=== PATIENT | male | born 1990 | race American Indian/Alaskan Native ===

== ENCOUNTER 2019-05-07 21:23 | Emergency (ER) | payer SELFPAY ==
[~2019-05-07 21:23] MED LIST: THERMAZENE 50 GRAM TP ONE
[2019-05-07] MEDS ORDERED: IBUPROFEN PO ONE ×2 (21:47→21:50)
--- NOTE | 2019-05-07 21:47 | Event Note ---
ED Screening Note Date of service: 05/07/19 Time: 21:40 ED Screening Note: 28 y o male presents s/p burn to right hand from hot oil while at work unsure of tetanus booster This initial assessment/diagnostic orders/clinical plan/treatment(s) is/are subject to change based on patients health status, clinical progression and re- assessment by fellow clinical providers in the ED. Further treatment and workup at subsequent clinical providers discretion. Patient/guardian urged not to elope from the ED as their condition may be serious if not clinically assessed and managed. Initial orders include: 600 mg motrin given in ED sulfadene acc eval
[2019-05-07] MEDS ORDERED: BOOSTRIX IM ONE (23:26)
[2019-05-07] MEDS ORDERED: ULTRAM PO ONE (23:26)
[2019-05-08] MEDS ORDERED: THERMAZENE 50 GRAM TP ONE (00:39)
--- NOTE | 2019-05-08 01:20 | Emergency Department Report ---
ED Burn/Smoke HPI - General Chief complaint: Burn/Smoke Inhalation Stated complaint: BURN ON RIGHT HAND Time Seen by Provider: 05/07/19 21:40 Source: patient Mode of arrival: Ambulatory Limitations: No Limitations - History of Present Illness Initial comments: Patient is a 28-year-old AA male with no past medical history presents to the ED with acute onset of persistent severe dorsal right hand blistered burn injury after a hot grease accidentally poured on his right hand at work about 2 hours ago. Patient denies dizziness, numbness and tingling overnight and, nausea, vomiting, syncope, headache, chest pain, shortness of breath, or fall. Patient states that he is not updated his tetanus vaccination. MD Complaint: burn (right hand), other (right hand blistered burn injury) -: Sudden, hour(s) (2) Type of Exposure: hot liquid (greese) Smoke Inhalation: none Place: industrial (work) Location: other (right hand dorsum) Location - Extremities: Right: Hand (dorsal right hand blistered burn injury) Severity: severe Severity scale (0 -10): 7 Associated Symptoms: denies: denies other symptoms, headache, vision changes, cough, diaphoresis, fever/chills, chest pain, flushing, neck pain - Related Data Previous Rx's Medication Instructions Recorded Last Taken Type Acetaminophen/Codeine [Tylenol 1 tab PO Q6H PRN #12 tab 05/08/19 Unknown Rx /Codeine # 3 tab] Ibuprofen [Motrin] 600 mg PO Q8H PRN #24 tablet 05/08/19 Unknown Rx Silver Sulfadiazine [Silvadene] 1 applic TP Q12H #25 cream..g. 05/08/19 Unknown Rx Allergies Allergy/AdvReac Type Severity Reaction Status Date / Time Penicillins Allergy Unknown Verified 05/07/19 21:25 Burn HPI - History Stated Complaint: BURN ON RIGHT HAND Chief Complaint: Burn/Smoke Inhalation Time Seen by Provider: 05/07/19 21:40 Duration of Burn: Today Burn Location: Other (dorsal right hand) Burn Etiology: Accidental, Scald (dorsal right hand) Pain: Severe Tetanus Status: Not up to Date Symptoms:: Yes Blistering, No Malaise, No Myalgias, No Fever, No Vomiting, No Able to Tolerate Fluids Other History: Patient is a 28-year-old AA male with no past medical history presents to the ED with acute onset of persistent severe dorsal right hand blistered burn injury after a hot grease accidentally poured on his right hand at work about 2 hours ago. Patient denies dizziness, numbness and tingling overnight and, nausea, vomiting, syncope, headache, chest pain, shortness of breath, or fall. Patient states that he is not updated his tetanus vaccination. - Home Meds and Allergies Home Medications: Previous Rx's Medication Instructions Recorded Last Taken Type Acetaminophen/Codeine [Tylenol 1 tab PO Q6H PRN #12 tab 05/08/19 Unknown Rx /Codeine # 3 tab] Ibuprofen [Motrin] 600 mg PO Q8H PRN #24 tablet 05/08/19 Unknown Rx Silver Sulfadiazine [Silvadene] 1 applic TP Q12H #25 cream..g. 05/08/19 Unknown Rx Allergies/Adverse Reactions: Allergies Allergy/AdvReac Type Severity Reaction Status Date / Time Penicillins Allergy Unknown Verified 05/07/19 21:25 ED Review of Systems ROS: Stated complaint: BURN ON RIGHT HAND Other details as noted in HPI Constitutional: denies: chills, fever Eyes: denies: eye pain, eye discharge, vision change ENT: denies: ear pain, throat pain Respiratory: denies: cough, shortness of breath, wheezing Cardiovascular: denies: chest pain, palpitations Endocrine: no symptoms reported Gastrointestinal: denies: abdominal pain, nausea, diarrhea Genitourinary: denies: urgency, dysuria Musculoskeletal: arthralgia (right hand blistered burn ), myalgia. denies: back pain, joint swelling Skin: other (Blistered dorsal right hand burn injury). denies: rash, lesions Neurological: denies: headache, weakness, paresthesias Psychiatric: denies: anxiety, depression Hematological/Lymphatic: denies: easy bleeding, easy bruising ED Past Medical Hx - Past Medical History Previous Medical History?: No - Surgical History Past Surgical History?: No - Social History Smoking Status: Never Smoker Substance Use Type: Marijuana - Medications Home Medications: Home Medications Medication Instructions Recorded Confirmed Last Taken Type Acetaminophen/Codeine [Tylenol 1 tab PO Q6H PRN #12 tab 05/08/19 Unknown Rx /Codeine # 3 tab] Ibuprofen [Motrin] 600 mg PO Q8H PRN #24 tablet 05/08/19 Unknown Rx Silver Sulfadiazine [Silvadene] 1 applic TP Q12H #25 cream..g. 05/08/19 Unknown Rx ED Physical Exam - General Limitations: No Limitations General appearance: alert, in no apparent distress - Head Head exam: Present: atraumatic, normocephalic, normal inspection - Eye Eye exam: Present: normal appearance, PERRL, EOMI Pupils: Present: normal accommodation - ENT ENT exam: Present: normal exam, mucous membranes moist, TM's normal bilaterally, normal external ear exam - Neck Neck exam: Present: normal inspection, full ROM - Respiratory Respiratory exam: Present: normal lung sounds bilaterally. Absent: respiratory distress, wheezes, rales, rhonchi, chest wall tenderness, accessory muscle use, prolonged expiratory - Cardiovascular Cardiovascular Exam: Present: regular rate, normal rhythm, normal heart sounds. Absent: systolic murmur, diastolic murmur, rubs, gallop - GI/Abdominal GI/Abdominal exam: Present: soft, normal bowel sounds. Absent: distended, tenderness - Rectal Rectal exam: Present: deferred - Extremities Exam Extremities exam: Present: normal inspection, tenderness (Dorsal right hand 2nd degree burn with blisters), normal capillary refill. Absent: pedal edema, joint swelling - Back Exam Back exam: Present: normal inspection, full ROM - Neurological Exam Neurological exam: Present: alert, oriented X3, CN II-XII intact, normal gait, reflexes normal - Psychiatric Psychiatric exam: Present: normal affect, normal mood - Skin Skin exam: Present: warm, dry, intact, normal color, other (Blistered dorsal right hand second degree burn injury ). Absent: rash ED Course Vital Signs 05/07/19 05/07/19 05/07/19 21:44 21:48 23:50 Temperature 98.3 F Pulse Rate 73 Respiratory 18 18 16 Rate Blood Pressure 109/48 O2 Sat by Pulse 96 Oximetry - Reevaluation(s) Reevaluation #1: 05/08/19 01:23 Patient is alert and oriented 3 and is not in any distress. The dorsal right hand wound was cleaned and topical Silvadene cream applied to the the burn wound and dressed appropriately. Patient was also given Boostix tetanus vaccination in the ED. patient was discharged home on pain medications and most Silvadene prescription, and was advised to follow-up with his primary care physician in 7- 10 days or return to the ED immediately if symptoms get worse. ED Medical Decision Making - Medical Decision Making Patient is alert and oriented 3 and is not in any distress. The dorsal right hand wound was cleaned and topical Silvadene cream applied to the the burn wound and dressed appropriately. Patient was also given Boostix tetanus vaccination in the ED. patient was discharged home on pain medications and most Silvadene prescription, and was advised to follow-up with his primary care physician in 7- 10 days or return to the ED immediately if symptoms get worse. - Differential Diagnosis Second degree wound on right hand; Right hand pain Critical care attestation.: If time is entered above; I have spent that time in minutes in the direct care of this critically ill patient, excluding procedure time. ED Disposition Clinical Impression: Pain of right hand Second degree burn of right hand Qualifiers: Encounter type: initial encounter Burn of hand location: dorsum Qualified Code(s): T23.261A - Burn of second degree of back of right hand, initial encounter Disposition: TO HOME OR SELFCARE Is pt being admited?: No Does the pt Need Aspirin: No Condition: Stable Instructions: Full Thickness Burn (ED), Superficial Burn (ED) Additional Instructions: Take medications with food, drink plenty of fluids and follow-up with your primary care physician in 7-10 days for reevaluation. Return to the ED immediately if symptoms get worse. Prescriptions: Ibuprofen [Motrin] 600 mg PO Q8H PRN #24 tablet PRN Reason: Pain Silver Sulfadiazine [Silvadene] 1 applic TP Q12H #25 cream..g. Acetaminophen/Codeine [Tylenol /Codeine # 3 tab] 1 tab PO Q6H PRN #12 tab PRN Reason: Pain , Severe (7-10) Referrals: CLEVE PORTER MD [Primary Care Provider] - 3-5 Days Time of Disposition: 01:28 Print Language: THAI
[2019-05-08 02:13] VITALS: BP 101/63
== END 2019-05-08 02:11 | disposition home or self-care (01) ==
LOC: ED 21:23
DX: T23.201A Burn of second degree of right hand, unspecified site, initial encounter (principal); F12.90 Cannabis use, unspecified, uncomplicated; Z79.899 Other long term (current) drug therapy; Z88.0 Allergy status to penicillin; X19.XXXA Contact with other heat and hot substances, initial encounter; Y93.89 Activity, other specified; Y92.69 Other specified industrial and construction area as the place of occurrence of the external cause; Y99.0 Civilian activity done for income or pay
CPT/HCPCS: 90471; 90715; 99282

== ENCOUNTER 2019-07-12 15:35 | Emergency (ER) | payer SELFPAY ==
--- NOTE | 2019-07-12 16:23 | XRay Report ---
RIGHT HAND, 2 VIEWS INDICATION: PAIN/SWELLING R/T INJURY. COMPARISON: None. IMPRESSION: There is moderate soft tissue swelling. Normal bone mineralization. No acute osseous fi ndings or joint pathology is identified on 2 views. Signer Name: Obi Lester Jr, MD Signed: 07/12/2019 4:18 PM Workstation Name: [id number]
[2019-07-12] MEDS ORDERED: KETOROLAC 30 MG/1 ML INJ IM ONE (17:02)
--- NOTE | 2019-07-12 17:02 | Emergency Department Report ---
ED General Adult HPI - General Chief complaint: Extremity Injury, Upper Stated complaint: SWOLLEN HAND Time Seen by Provider: 07/12/19 16:52 Source: patient Mode of arrival: Ambulatory Limitations: No Limitations - History of Present Illness Initial comments: 29yo BM states that he cut his hand on a piece of metal at work x 1 day. He further states that his hand began to swell and became painful. He verbalizes his current pain an 8 and is current on Tetanus vaccine as of this year. -: days(s) (1) Location: right, upper extremity Radiation: non-radiation Severity scale (0 -10): 8 Quality: aching Consistency: constant Improves with: none Worsens with: none Associated Symptoms: denies other symptoms Treatments Prior to Arrival: none - Related Data Previous Rx's Medication Instructions Recorded Last Taken Type Acetaminophen/Codeine [Tylenol 1 tab PO Q6H PRN #12 tab 05/08/19 Unknown Rx /Codeine # 3 tab] Ibuprofen [Motrin] 600 mg PO Q8H PRN #24 tablet 05/08/19 Unknown Rx Silver Sulfadiazine [Silvadene] 1 applic TP Q12H #25 cream..g. 05/08/19 Unknown Rx Clindamycin [Clindamycin CAP] 300 mg PO Q8H 10 Days #30 cap 07/12/19 Unknown Rx Ibuprofen [Motrin 600 MG tab] 600 mg PO TID 7 Days #21 tab 07/12/19 Unknown Rx Allergies Allergy/AdvReac Type Severity Reaction Status Date / Time Penicillins Allergy Unknown Verified 05/07/19 21:25 ED Review of Systems ROS: Stated complaint: SWOLLEN HAND Other details as noted in HPI Comment: All other systems reviewed and negative Musculoskeletal: as per HPI ED Past Medical Hx - Past Medical History Previous Medical History?: No - Surgical History Past Surgical History?: No - Social History Smoking Status: Never Smoker Substance Use Type: None - Medications Home Medications: Home Medications Medication Instructions Recorded Confirmed Last Taken Type Acetaminophen/Codeine [Tylenol 1 tab PO Q6H PRN #12 tab 05/08/19 Unknown Rx /Codeine # 3 tab] Ibuprofen [Motrin] 600 mg PO Q8H PRN #24 tablet 05/08/19 Unknown Rx Silver Sulfadiazine [Silvadene] 1 applic TP Q12H #25 cream..g. 05/08/19 Unknown Rx Clindamycin [Clindamycin CAP] 300 mg PO Q8H 10 Days #30 cap 07/12/19 Unknown Rx Ibuprofen [Motrin 600 MG tab] 600 mg PO TID 7 Days #21 tab 07/12/19 Unknown Rx ED Physical Exam - General Limitations: No Limitations General appearance: alert, in no apparent distress - Head Head exam: Present: atraumatic, normocephalic - Eye Eye exam: Present: normal appearance, PERRL - ENT ENT exam: Present: normal exam, normal orophraynx - Neck Neck exam: Present: normal inspection, tenderness, full ROM - Respiratory Respiratory exam: Present: normal lung sounds bilaterally. Absent: respiratory distress, wheezes - Cardiovascular Cardiovascular Exam: Present: regular rate, normal rhythm, normal heart sounds - GI/Abdominal GI/Abdominal exam: Present: soft. Absent: distended, tenderness - Rectal Rectal exam: Present: deferred - Extremities Exam Extremities exam: Present: tenderness, other (R dorsal hand swelling and tenderness) - Back Exam Back exam: Present: normal inspection, full ROM. Absent: tenderness - Neurological Exam Neurological exam: Present: alert, altered, oriented X3 - Psychiatric Psychiatric exam: Present: normal affect. Absent: normal mood, depressed - Skin Skin exam: Present: warm, dry, intact ED Medical Decision Making - Radiology Data [facility] [address] [place] [address] XRay Report Signed Patient: ALANA SANTOS MR# : [id number] : 1990 Acct:[id number] Age/Sex: 29 / M ADM Date: 07/12/19 Loc: ED Attending Dr: Ordering Physician: VEENA LAFLEUR NP Date of Service: 07/12/19 Procedure(s): XR hand 2V RT Accession Number(s): [id number] cc: VEENA LAFLEUR NP Fluoro Time In Minutes: RIGHT HAND, 2 VIEWS INDICATION: PAIN/SWELLING R/T INJURY. COMPARISON: None. IMPRESSION: There is moderate soft tissue swelling. Normal bone mineralization. No acute osseous findings or joint pathology is identified on 2 views. Signer Name: Obi Mora Jr, MD Signed: 07/12/2019 4:18 PM Workstation Name: [id number] Transcribed By: TTR Dictated By: OBI MORA JR, MD Electronically Authenticated By: OBI MORA JR, MD Signed Date/Time: 07/12/191617 DD/ 17 TD/TT: - Medical Decision Making 29yo BM states that he cut his hand on a piece of metal at work x 1 day. He further states that his hand began to swell and became painful. He verbalizes his current pain an 8 and is current on Tetanus vaccine as of this year. Pt's hand imaging revealed no abnormalities or foreign bodies present. Pt was given a Toradol shot in clinic. Pt was given a prescription for Clindamycin upon discharge, he was explained to continue NSAIDs and warm compress. F/U with PCP in 3-5 days. Critical care attestation.: If time is entered above; I have spent that time in minutes in the direct care of this critically ill patient, excluding procedure time. ED Disposition Clinical Impression: Cellulitis Disposition: DC-01 TO HOME OR SELFCARE Is pt being admited?: No Does the pt Need Aspirin: No Condition: Stable Instructions: Cellulitis (ED) Additional Instructions: Pt was given a prescription for Clindamycin upon discharge, he was explained to continue NSAIDs and warm compress. F/U with PCP in 3-5 days. Prescriptions: Clindamycin [Clindamycin CAP] 300 mg PO Q8H 10 Days #30 cap Ibuprofen [Motrin 600 MG tab] 600 mg PO TID 7 Days #21 tab Referrals: [facility] [Outside] - 3-5 Days
== END 2019-07-12 17:31 | disposition home or self-care (01) ==
LOC: ED 15:35
DX: L03.113 Cellulitis of right upper limb (principal)
CPT/HCPCS: 73120; 96372; 99283; J1885

== ENCOUNTER 2020-07-07 00:25 | Emergency (ER) | payer SELFPAY ==
[2020-07-07] MEDS ORDERED: ACETAMINOPHEN 500 MG TAB PO ONE (01:20)
[2020-07-07] MEDS ORDERED: IBUPROFEN 600 MG TAB PO ONE (01:20)
[2020-07-07] MEDS ORDERED: LIDOCAINE (1%) 10 MG/1 ML VIAL 20 ML MDV INFILTRATI ONE (01:21)
--- NOTE | 2020-07-07 01:53 | XRay Report ---
LEFT KNEE, 3 VIEWS INDICATION / CLINICAL INFORMATION: Pain - injury from a fall. COMPARISON: None available. FINDINGS: There is mild prepatellar soft tissue swelling. No fracture, dislocation, or joint effusion identifie d. No significant degenerative change. IMPRESSION: No fracture or malalignment. Signer Name: Noemi Barbour MD Signed: 07/07/2020 1:49 AM Workstation Name: [id number]
[2020-07-07] MEDS ORDERED: NEOMY 3.5 MG/BACIT 400 UNITS/POLY B 5000 UNITS/GM OINT PACKET TP ONE (03:36)
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
[2020-07-07 05:54] VITALS: BP 116/80
== END 2020-07-07 05:20 | disposition home or self-care (01) ==
LOC: ED 00:25
DX: S83.92XA Sprain of unspecified site of left knee, initial encounter (principal); S81.812A Laceration without foreign body, left lower leg, initial encounter; S80.212A Abrasion, left knee, initial encounter; F17.200 Nicotine dependence, unspecified, uncomplicated; Z88.0 Allergy status to penicillin; Z79.899 Other long term (current) drug therapy; W18.30XA Fall on same level, unspecified, initial encounter; Y93.89 Activity, other specified; Y92.410 Unspecified street and highway as the place of occurrence of the external cause; Y99.8 Other external cause status
CPT/HCPCS: 12034; 73562; 99284; A6250

== ENCOUNTER 2020-07-22 09:21 | Emergency (ER) | payer SELFPAY ==
[2020-07-22 09:37] VITALS: BP 105/61
--- NOTE | 2020-07-22 10:57 | Emergency Department Report ---
Suture/Staple Removal - [facility] Chief Complaint: Laceration/Recheck/Suture Stated Complaint: REMOVAL OF STITCHES Time Seen by Provider: 07/22/20 10:14 When Sutures or Jeni Placed: >14 Days Ago Wound Location: Left anterior lower leg ED Review of Systems ROS: Stated complaint: REMOVAL OF STITCHES Other details as noted in HPI Comment: All other systems reviewed and negative Constitutional: denies: chills, fever Eyes: denies: eye pain, eye discharge, vision change ENT: denies: ear pain, throat pain Respiratory: denies: cough, shortness of breath, wheezing Cardiovascular: denies: chest pain, palpitations Endocrine: no symptoms reported Gastrointestinal: denies: abdominal pain, nausea, diarrhea Genitourinary: denies: urgency, dysuria Musculoskeletal: as per HPI. denies: back pain, joint swelling, arthralgia Skin: denies: rash, lesions Neurological: denies: headache, weakness, paresthesias Psychiatric: denies: anxiety, depression Hematological/Lymphatic: denies: easy bleeding, easy bruising ED Past Medical Hx - Past Medical History Previous Medical History?: No - Surgical History Past Surgical History?: No - Social History Smoking Status: Never Smoker Substance Use Type: None - Medications Home Medications: Home Medications Medication Instructions Recorded Confirmed Last Taken Type Acetaminophen/Codeine [Tylenol 1 tab PO Q6H PRN #12 tab 05/08/19 Unknown Rx /Codeine # 3 tab] Silver Sulfadiazine [Silvadene] 1 applic TP Q12H #25 cream..g. 05/08/19 Unknown Rx Clindamycin [Clindamycin CAP] 300 mg PO Q8H 10 Days #30 cap 07/12/19 Unknown Rx Ibuprofen [Motrin 600 MG tab] 600 mg PO TID 7 Days #21 tab 07/12/19 Unknown Rx Ibuprofen [Motrin 600 MG tab] 600 mg PO Q8H PRN #30 tablet 07/07/20 Unknown Rx Sulfamethoxazole/Trimethoprim 1 each PO Q12H #20 tablet 07/07/20 Unknown Rx [Bactrim DS TAB] Suture Removal Exam - Exam General: Vital signs noted. No distress. Alert and acting appropriately. Wound: No Pathologic Erythema, No Tenderness, No Drainage, No Pus, No Wound Dehiscence Other Systems: All other systems reviewed and are unremarkable. ED Course Vital Signs 07/22/20 09:35 Temperature 98.0 F Pulse Rate 66 Respiratory 16 Rate Blood Pressure 105/61 [Right] O2 Sat by Pulse 99 Oximetry ED Recheck MDM - Differential Diagnosis Suture/Staple Removal - Medical Decision Making 26 Prolene sutures were removed from the left anterior lower leg. The wound is clean dry and intact. Sterile Steri-Strips were applied for secondary support after the sutures were removed. Recommended keeping the area clean dry and follow-up with primary care doctor in the next week for wound recheck. Patient was instructed to return to the emerge part any change or worsening symptoms. He verbalized understand the diagnosis, treatment plan and follow-up instructions and all his questions were answered. Critical care attestation.: If time is entered above; I have spent that time in minutes in the direct care of this critically ill patient, excluding procedure time. ED Disposition Clinical Impression: Visit for suture removal Disposition: MED SCREENING EXAM-LEFT Is pt being admited?: No Condition: Stable Time of Disposition: 10:59
== END 2020-07-22 11:15 | disposition left against medical advice (07) ==
LOC: ED 09:21
DX: Z00.8 Encounter for other general examination (principal); Z53.21 Procedure and treatment not carried out due to patient leaving prior to being seen by health care provider

== ENCOUNTER 2021-06-23 14:40 | Emergency (ER) | payer BC ==
[2021-06-23] MEDS ORDERED: IBUPROFEN 600 MG TAB PO ONE (14:52)
--- NOTE | 2021-06-23 15:22 | XRay Report ---
CHEST 2 VIEWS INDICATION / CLINICAL INFORMATION: cough, fever. COMPARISON: None available. FINDINGS: SUPPORT DEVICES: None. HEART / MEDIASTINUM: No significant abnormality. LUNGS / PLEURA: No significant pulmonary or pleural abnormality. No pneumothorax. ADDITIONAL FINDINGS: No significant additional findings. IMPRESSION: 1. No acute findings. Signer Name: Felix Hall MD Signed: 06/23/2021 3:17 PM Workstation Name: [id number]
[2021-06-23] MEDS ORDERED: BENZONATATE 100 MG CAP PO ONE (16:14)
[2021-06-23] MEDS ORDERED: methylPREDNISolone Sod Succinate 125 MG/2 ML INJ IM ONE (16:14)
[2021-06-23] MEDS ORDERED: IPRATROPIUM/ALBUTEROL SULFATE 3 ML AMPUL.NEB IH ONE (16:14)
--- NOTE | 2021-06-23 16:14 | Emergency Department Report ---
- General Chief Complaint: Upper Respiratory Infection Stated Complaint: ASTHMA Time Seen by Provider: 06/23/21 15:38 Source: patient Mode of arrival: Ambulatory Limitations: No Limitations - History of Present Illness Initial Comments: 31-year-old male presents to the ER today with complaints of URI symptoms and cough. Patient states he has a history of asthma, but has not had a flareup since he was a teenager and therefore does not have any of his inhalers. Patient states that his symptoms started a couple days ago with a productive cough, wheezing and chest tightness mainly when he lays down. He denies any shortness of breath, fever or chills. He reports rhinorrhea and nasal congestion. He states that he had a cold 2 weeks ago but had gotten better. He denies any recent sick contacts or recent travel. He has not taken a COVID-19 test in the past 2 weeks. He has not gotten any of the COVID-19 vaccines. He states last time he admitted for his asthma was when he was a teenager. He does smoke tobacco. He denies any other illicit drug use. MD Complaint: rhinorrhea, nasal congestion, other (cough, wheezing) -: days(s) (2) - Related Data Previous Rx's Medication Instructions Recorded Last Taken Type Acetaminophen/Codeine [Tylenol 1 tab PO Q6H PRN #12 tab 05/08/19 Unknown Rx /Codeine # 3 tab] Silver Sulfadiazine [Silvadene] 1 applic TP Q12H #25 cream..g. 05/08/19 Unknown Rx Clindamycin [Clindamycin CAP] 300 mg PO Q8H 10 Days #30 cap 07/12/19 Unknown Rx Ibuprofen [Motrin 600 MG tab] 600 mg PO TID 7 Days #21 tab 07/12/19 Unknown Rx Ibuprofen [Motrin 600 MG tab] 600 mg PO Q8H PRN #30 tablet 07/07/20 Unknown Rx Sulfamethoxazole/Trimethoprim 1 each PO Q12H #20 tablet 07/07/20 Unknown Rx [Bactrim DS TAB] Albuterol Mdi (or & Nicu Only) 2 puff IH QID PRN #8.5 gram 06/23/21 Unknown Rx [ProAir HFA Inhaler] Benzonatate [Tessalon Perles] 100 mg PO Q8HR #30 capsule 06/23/21 Unknown Rx Cetirizine HCl [Zyrtec 10mg tab] 10 mg PO DAILY #30 tablet 06/23/21 Unknown Rx predniSONE [Deltasone] 50 mg PO QDAY #5 tab 06/23/21 Unknown Rx Allergies Allergy/AdvReac Type Severity Reaction Status Date / Time Penicillins Allergy Unknown Verified 05/07/19 21:25 ED Review of Systems ROS: Stated complaint: ASTHMA Other details as noted in HPI Comment: All other systems reviewed and negative Constitutional: denies: chills, fever Eyes: denies: eye pain, eye discharge, vision change ENT: congestion, other (rhinorrhea ) Respiratory: cough, wheezing. denies: shortness of breath Cardiovascular: denies: chest pain, palpitations, dyspnea on exertion, edema, syncope, paroxysmal nocturnal dyspnea Gastrointestinal: denies: abdominal pain, nausea, vomiting, diarrhea, constipation, hematemesis, melena, hematochezia Genitourinary: denies: urgency, dysuria, frequency, hematuria, discharge, testicular pain, testicular mass Musculoskeletal: denies: back pain, joint swelling, arthralgia Skin: denies: rash, lesions, change in color, change in hair/nails, pruritus Neurological: denies: headache, weakness, numbness, paresthesias, confusion, abnormal gait, vertigo Psychiatric: denies: anxiety, depression, auditory hallucinations, visual hallucinations, homicidal thoughts, suicidal thoughts Hematological/Lymphatic: denies: easy bleeding, easy bruising ED Past Medical Hx - Past Medical History Previous Medical History?: Yes Hx Asthma: Yes - Social History Smoking Status: Never Smoker Substance Use Type: None - Medications Home Medications: Home Medications Medication Instructions Recorded Confirmed Last Taken Type Acetaminophen/Codeine [Tylenol 1 tab PO Q6H PRN #12 tab 05/08/19 Unknown Rx /Codeine # 3 tab] Silver Sulfadiazine [Silvadene] 1 applic TP Q12H #25 cream..g. 05/08/19 Unknown Rx Clindamycin [Clindamycin CAP] 300 mg PO Q8H 10 Days #30 cap 07/12/19 Unknown Rx Ibuprofen [Motrin 600 MG tab] 600 mg PO TID 7 Days #21 tab 07/12/19 Unknown Rx Ibuprofen [Motrin 600 MG tab] 600 mg PO Q8H PRN #30 tablet 07/07/20 Unknown Rx Sulfamethoxazole/Trimethoprim 1 each PO Q12H #20 tablet 07/07/20 Unknown Rx [Bactrim DS TAB] Albuterol Mdi (or & Nicu Only) 2 puff IH QID PRN #8.5 gram 06/23/21 Unknown Rx [ProAir HFA Inhaler] Benzonatate [Tessalon Perles] 100 mg PO Q8HR #30 capsule 06/23/21 Unknown Rx Cetirizine HCl [Zyrtec 10mg tab] 10 mg PO DAILY #30 tablet 06/23/21 Unknown Rx predniSONE [Deltasone] 50 mg PO QDAY #5 tab 06/23/21 Unknown Rx ED Physical Exam - General Limitations: No Limitations General appearance: alert, in no apparent distress - Head Head exam: Present: atraumatic, normocephalic - Eye Eye exam: Present: normal appearance, PERRL, EOMI Pupils: Present: normal accommodation - Neck Neck exam: Present: normal inspection, full ROM. Absent: meningismus - Respiratory Respiratory exam: Present: normal lung sounds bilaterally, wheezes (mild diffuse exp wheezing noted ). Absent: respiratory distress, rales, rhonchi, stridor - Cardiovascular Cardiovascular Exam: Present: regular rate, normal rhythm, normal heart sounds - GI/Abdominal GI/Abdominal exam: Present: soft. Absent: distended, tenderness, guarding, rebound - Neurological Exam Neurological exam: Present: alert, oriented X3, CN II-XII intact, normal gait - Psychiatric Psychiatric exam: Present: normal affect, normal mood - Skin Skin exam: Present: intact ( ) ED Course Vital Signs 06/23/21 06/23/21 06/23/21 14:50 16:15 17:34 Temperature 100.5 F H 98.7 F Pulse Rate 98 H 81 Pulse Rate [ 98 H Anterior] Pulse Rate [ 88 Posterior] Respiratory 20 18 Rate Respiratory 18 Rate [Anterior] Respiratory 18 Rate [Posterior ] Blood Pressure 126/80 113/64 [Right] O2 Sat by Pulse 99 95 Oximetry ED Medical Decision Making - Radiology Data Radiology results: report reviewed Patient: ALANA SANTOS MR# : [id number] : 1990 Acct:[id number] Age/Sex: 31 / M ADM Date: 06/23/21 Loc: ED Attending Dr: Ordering Physician: ED DOC, Date of Service: 06/23/21 Procedure(s): XR chest routine 2V Accession Number(s): [id number] cc: ED DOC, Fluoro Time In Minutes: CHEST 2 VIEWS INDICATION / CLINICAL INFORMATION: cough, fever. COMPARISON: None available. FINDINGS: SUPPORT DEVICES: None. HEART / MEDIASTINUM: No significant abnormality. LUNGS / PLEURA: No significant pulmonary or pleural abnormality. No pneumothorax. ADDITIONAL FINDINGS: No significant additional findings. IMPRESSION: 1. No acute findings. Signer Name: Felix Hall MD Signed: 06/23/2021 3:17 PM Workstation Name: [id number] Transcribed By: SS Dictated By: Felix Hall MD Electronically Authenticated By: Felix Hall MD Signed Date/Time: 06/23/211516 DD/ 16 TD/TT: - Medical Decision Making 1743: Patient reports feeling much better after nebulizer treatment and IM Solu- Medrol and states he is ready to go. Repeat chest exam shows improvement of his wheezing. Patient currently is not in any acute pain or respiratory distress. His repeat vital signs shows improvement of his temperature after ibuprofen and remaining vital signs are stable. Chest x-ray shows nothing acute. At this time I do not see any indication for any additional testing or admission to the hospital. Suspect patient symptoms related to your viral illness causing his URI symptoms and is asthmatic bronchitis flareup. I did inform patient that given the COVID-19 pandemic he should get a COVID-19 test when he leaves here today and in the meantime quarantine until he gets the results of the test. He will be discharged home with steroids, albuterol and additional medications to help with symptoms. Patient understands to return if his symptoms worsens. Patient was stable at time of discharge. - Differential Diagnosis COVID-19, pneumonia, asthma exacerbation, ARDS with hypoxia Critical care attestation.: If time is entered above; I have spent that time in minutes in the direct care of this critically ill patient, excluding procedure time. ED Disposition Clinical Impression: Asthmatic bronchitis, Upper respiratory tract infection Disposition: HOME / SELF CARE / HOMELESS Is pt being admited?: No Does the pt Need Aspirin: No Condition: Stable Instructions: Upper Respiratory Infection, Adult, [id number], Asthma Attack, Acute Bronchitis, Adult, Chronic Bronchitis (ED) Additional Instructions: Recommend that you take the prednisone, and use albuterol inhaler as prescribed. Take the Tessalon Perles and also the Zyrtec as prescribed. Recommend that you do stop smoking. Given his current pandemic, COVID-19 is in the differential of possibilities and therefore I do recommend an outpatient COVID- 19 test. In the meantime I recommend that you isolate/quarantine yourself and stay away from anyone who is elderly, immunocompromised or chronically ill. Continue to monitor your temperatures at home. You can alternate Tylenol and ibuprofen for any fever. I do recommend that you get a pulse oximeter to monitor your oxygen at home. If your oxygen drops below 91 or 90% persistently return immediately to the ER. Return to the ER if your symptoms changes or worsens in any way. Prescriptions: predniSONE [Deltasone] 50 mg PO QDAY #5 tab Albuterol Mdi (or & Nicu Only) [ProAir HFA Inhaler] 2 puff IH QID PRN #8.5 gram PRN Reason: Shortness Of Breath Benzonatate [Tessalon Perles] 100 mg PO Q8HR #30 capsule Cetirizine HCl [Zyrtec 10mg tab] 10 mg PO DAILY #30 tablet Referrals: PRIMARY CARE, [Primary Care Provider] - 3-5 Days [facility] [Provider Group] - 3-5 Days Forms: Work/School Release Form(ED) Time of Disposition: 17:47
[2021-06-23 17:35] VITALS: BP 113/64
== END 2021-06-23 17:49 | disposition home or self-care (01) ==
LOC: ED 14:40
DX: J20.9 Acute bronchitis, unspecified (principal); J06.9 Acute upper respiratory infection, unspecified; J45.909 Unspecified asthma, uncomplicated; Z88.0 Allergy status to penicillin; Z79.899 Other long term (current) drug therapy
CPT/HCPCS: 71046; 94640; 96372; 99283; J2930; 94644